=== PATIENT | male | born 1985 | race Hispanic/Latino ===

== ENCOUNTER 2021-03-21 10:41 | Emergency (ER) | payer OTHER ==
[~2021-03-21] VITALS: Ht 160 cm; Wt 97.6 kg
[~2021-03-21 10:41] MED LIST: AMOXICILLIN500 MG PO; ERYTHROMYCIN O3.5 GM OU; NAPROSYN250 MG OR; NAPROSYN500 MG OR; NO MEDS
[2021-03-21 14:20] VITALS: BP 141/94
== END 2021-03-21 14:20 | disposition home or self-care (01) ==
LOC: ED 10:41
DX: U07.1 COVID-19 (principal)